=== PATIENT | female | born 2000 | race Caucasian/White ===

== ENCOUNTER 2023-09-10 07:07 | Day surgery (SDC) | payer BC, OTHER ==
[2023-09-10 07:51] VITALS: BMI 39.7
[2023-09-10] MEDS ORDERED: hydrALAZINE 20 MG/ML VIAL SLOW IVP PRN (08:33)
[2023-09-10 09:11] LABS: #Eosinphils 0.2 10x3/uL (0.0-0.5); #Monocytes 0.6 10x3/uL (0.0-1.1); #Neutrophils 7.5 10x3/uL (1.5-8.4); %Basophils 0.3 % (0.0-2.0); %Lymphocytes 20.8 % (18.0-47.0); %Monocytes 5.7 % (0.0-10.0); %Neutrophils 70.4 % (40.0-75.0); Hematocrit 27.7 % (34.9-44.5); Hemoglobin 9.1 g/dL (12.0-15.5); Mean Corpuscular HGB CONC 32.9 g/dL (32.0-36.0); Mean Corpuscular Hemoglobin 29.1 pg (27.0-33.0); Mean Corpuscular Volume 88.5 fl (81.6-98.3); Mean Platelet Volume 9.9 fl (7.4-10.4); Platelet Count 235 10x3/uL (150-450); RBC Distribution Width 12.1 % (11.5-14.5); Red Blood Cell (RBC) Count 3.13 10x6/uL (3.90-5.03); White Blood Cell (WBC) Count 10.7 10x3/uL (3.5-10.5)
[2023-09-10 09:24] LABS: ALT (SGPT) 12 U/L (8-55); AST (SGOT) 13 U/L (5-34); Albumin 3.1 g/dL (3.5-5.0); Alkaline Phosphatase 55 U/L (40-110); Anion Gap 11 mmol/L (10-20); BUN (Urea Nitrogen) 10 mg/dL (7.0-18.7); Bilirubin, Total 0.4 mg/dL (0.2-1.2); Calc. Creatinine Clearance 239 mL/min (70-130); Calcium 8.2 mg/dL (7.8-10.44); Carbon Dioxide 23 mmol/L (22-29); Chloride 107 mmol/L (98-107); Estimated GFR 126; Globulin 2.1 g/dL (2.4-3.5); Glucose 86 mg/dL (70-105); Potassium 3.9 mmol/L (3.5-5.1); Protein, Total 5.2 g/dL (6.0-8.3); Sodium 137 mmol/L (136-145)
== END 2023-09-10 09:54 | disposition home or self-care (01) ==
LOC: CSHLD/OP 07:07
PROVIDERS: ATTEND Student in an Organized Health Care Education/Training Program
DX: O99.891 Other specified diseases and conditions complicating pregnancy (principal); R51.9 Headache, unspecified; O24.419 Gestational diabetes mellitus in pregnancy, unspecified control; O99.113 Other diseases of the blood and blood-forming organs and certain disorders involving the immune mechanism complicating pregnancy, third trimester; D68.59 Other primary thrombophilia; O99.013 Anemia complicating pregnancy, third trimester; D64.9 Anemia, unspecified; Z98.84 Bariatric surgery status; Z88.5 Allergy status to narcotic agent; Z88.2 Allergy status to sulfonamides; Z3A.31 31 weeks gestation of pregnancy
CPT/HCPCS: 80053; 82570; 84156; 85025; 99283

== ENCOUNTER 2023-10-15 18:14 | Inpatient (IN) | payer BC, OTHER ==
[~2023-10-15 18:14] MED LIST: Bupivacaine 0.25% HCL 30 ML VIAL ONE; Bupivacaine PF 0.5% 30 ML VIAL ONE
[2023-10-15 18:36] VITALS: BMI 40.2
[2023-10-15] MEDS ORDERED: Promethazine HCl 25 MG/ML VIAL IM PRN (18:39)
[2023-10-15] MEDS ORDERED: Ondansetron PF 4 MG/2 ML Vial IVP PRN (18:39)
[2023-10-15] MEDS ORDERED: Zolpidem Tartrate 5 MG TAB PO PRN (18:39)
[2023-10-15] MEDS ORDERED: Misoprostol 200 MCG TAB PR PRN (18:39)
[2023-10-15] MEDS ORDERED: Diphenoxylate HCl/Atropine Tablet PO PRN (18:39)
[2023-10-15] MEDS ORDERED: Carboprost 250 MCG/ML AMP IM PRN (18:39)
[2023-10-15] MEDS ORDERED: hydrALAZINE 20 MG/ML VIAL SLOW IVP PRN (18:39)
[2023-10-15] MEDS ORDERED: Methylergonovine 0.2 MG/ML VIAL IM PRN (18:39)
[2023-10-15] MEDS ORDERED: Acetaminophen 500 MG TAB PO PRN (18:39)
[2023-10-15] MEDS ORDERED: Lidocaine 1% (PF) 30 ML VIAL SC PRN (18:39)
[2023-10-15] MEDS ORDERED: HYDROcodone/Acetaminophen 5/325 mg Tablet PO PRN (18:39)
[2023-10-15] MEDS ORDERED: Ibuprofen 800 MG TAB PO PRN (18:39)
[2023-10-15] MEDS ORDERED: Oxytocin 30 units/NS 500 ML 500 ML IV SCH ×2 (18:45)
[2023-10-15 19:14] LABS: Hematocrit 33.5 % (34.9-44.5); Hemoglobin 10.9 g/dL (12.0-15.5); Mean Corpuscular HGB CONC 32.5 g/dL (32.0-36.0); Mean Corpuscular Hemoglobin 27.9 pg (27.0-33.0); Mean Corpuscular Volume 85.9 fl (81.6-98.3); Mean Platelet Volume 9.8 fl (7.4-10.4); Platelet Count 241 10x3/uL (150-450); RBC Distribution Width 13.8 % (11.5-14.5); White Blood Cell (WBC) Count 10.9 10x3/uL (3.5-10.5)
[2023-10-15 19:45] LABS: Syphilis Antibody Nonreactive (Nonreactive); Syphilis Antibody Index 0.06 S/CO (<1.00 Non-Reactive)
[2023-10-15 19:46] LABS: HBSAg Index 0.21 S/CO (0-0.99); Hep B Surf Ag - L&D Non-Reactive S/CO (NonReactive)
[2023-10-15 19:56] LABS: ALT (SGPT) 18 U/L (8-55); AST (SGOT) 16 U/L (5-34); Albumin 3.4 g/dL (3.5-5.0); Alkaline Phosphatase 64 U/L (40-110); Anion Gap 12 mmol/L (10-20); BUN (Urea Nitrogen) 8 mg/dL (7.0-18.7); Bilirubin, Total 0.6 mg/dL (0.2-1.2); Calc. Creatinine Clearance 242 mL/min (70-130); Calcium 8.7 mg/dL (7.8-10.44); Carbon Dioxide 22 mmol/L (22-29); Chloride 107 mmol/L (98-107); Estimated GFR 126; Globulin 2.5 g/dL (2.4-3.5); Glucose 92 mg/dL (70-105); Potassium 3.9 mmol/L (3.5-5.1); Protein, Total 5.9 g/dL (6.0-8.3); Sodium 137 mmol/L (136-145)
[2023-10-15] MEDS: Lactated Ringer's 1,000 ML IV SCH (20:00)
[2023-10-15] MEDS: Misoprostol 100 MCG TAB VAG SCH (20:29)
[2023-10-15 21:32] LABS: Amphetamine Not Detected (NotDetected); Barbiturates Screen Not Detected (NotDetected); Benzodiazepine Screen Not Detected (NotDetected); Cocaine Metabolite Screen Not Detected (NotDetected); Methadone Not Detected (NotDetected); Methamphetamine Not Detected (NotDetected); Opiate Screen Not Detected (NotDetected); Oxycodone Screen Not Detected (NotDetected); Phencyclidine (PCP) Not Detected (NotDetected); THC/Cannabinoid Screen Not Detected (NotDetected); Tricyclic Screen Not Detected (NotDetected)
[2023-10-16] MEDS: Misoprostol 100 MCG TAB VAG SCH ×5 (00:09→15:22)
[2023-10-16] MEDS: fentaNYL 50 mcg/mL 1 mL Vial SLOW IVP PRN ×3 (13:31→21:58)
[2023-10-16] MEDS: Lactated Ringer's 1,000 ML IV SCH (15:17)
[2023-10-16] MEDS ORDERED: fentaNYL/Ropivacaine Epidural 100 ML ONE (23:18)
[2023-10-17] MEDS ORDERED: Acetaminophen 325 MG TAB PO PRN (00:34)
[2023-10-17] MEDS ORDERED: Naloxone HCl 0.4 mg/ml Vial IVP PRN ×2 (00:34)
[2023-10-17] MEDS ORDERED: Moisturizing Cream (Eucerin) 113 GM JAR TOP PRN (00:34)
[2023-10-17] MEDS ORDERED: Lactated Ringer's 500 ML IV PRN (00:34)
[2023-10-17] MEDS ORDERED: diphenhydrAMINE 50 MG/ML VIAL IVP PRN (00:34)
[2023-10-17] MEDS ORDERED: Ondansetron PF 4 MG/2 ML Vial IVP PRN ×2 (00:34→17:16)
[2023-10-17] MEDS ORDERED: ePHEDrine Sulfate 50 MG/10 ML VIAL SLOW IVP PRN (00:34)
[2023-10-17] MEDS ORDERED: Promethazine HCl 25 MG/ML VIAL IM PRN ×2 (00:34→17:16)
[2023-10-17] MEDS ORDERED: fentaNYL 2 mcg/Ropivacaine 0.2% Epidural 100 ML CADD EPIDURAL SCH (00:45)
[2023-10-17] MEDS ORDERED: Communication Order-Pharmacy FS SCH (00:45)
[2023-10-17] MEDS ORDERED: fentaNYL 50 mcg/mL 1 mL Vial ONE (01:00)
[2023-10-17] MEDS: Lactated Ringer's 1,000 ML IV SCH ×2 (07:27→12:56)
[2023-10-17] MEDS: Misoprostol 100 MCG TAB VAG SCH ×4 (07:28→17:15)
[2023-10-17] MEDS ORDERED: HYDROcodone/Acetaminophen 5/325 mg Tablet PO PRN ×2 (16:37→17:16)
[2023-10-17] MEDS ORDERED: Ibuprofen 800 MG TAB PO PRN (16:37)
[2023-10-17] MEDS ORDERED: Ferrous Sulfate 325 MG TAB PO SCH (17:00)
[2023-10-17] MEDS ORDERED: Milk Of Magnesia 30 ML UDCUP PO PRN (17:16)
[2023-10-17] MEDS ORDERED: Bisacodyl 10 MG SUPP PR PRN (17:16)
[2023-10-17] MEDS ORDERED: Lanolin Ointment 7 GM TUBE TOP PRN (17:16)
[2023-10-17] MEDS ORDERED: Preparation H Ointment 28 GM TUBE PR PRN (17:16)
[2023-10-17] MEDS ORDERED: Benzocaine-Menthol 82.5 ML CAN TOP PRN (17:16)
[2023-10-17] MEDS ORDERED: diphenhydrAMINE 25 MG CAP PO PRN (17:16)
[2023-10-17] MEDS ORDERED: hydrALAZINE 20 MG/ML VIAL SLOW IVP PRN (17:16)
[2023-10-17] MEDS ORDERED: Boostrix 0.5 ML (Tdap) VIAL (>/=7 yrs of age) IM ONE (17:16)
[2023-10-17] MEDS: Ibuprofen 800 MG TAB PO SCH (23:35)
[2023-10-17] MEDS: Docusate 100 MG CAP PO SCH (23:35)
[2023-10-18] MEDS: HYDROcodone/Acetaminophen 5/325 mg Tablet PO PRN ×2 (01:21→08:03)
[2023-10-18] MEDS: Ibuprofen 800 MG TAB PO SCH (05:55)
[2023-10-18] MEDS: Docusate 100 MG CAP PO SCH (08:03)
[2023-10-18] MEDS ORDERED: Prenatal Vitamin 1 TAB PO SCH (09:00)
[2023-10-18 11:55] LABS: Cardiolipin IgA Ab 1.4 APL-U/mL (<14 Negative); Cardiolipin IgG Ab 0.6 GPL-U/mL (<10 Negative); Cardiolipin IgM Ab 6.3 MPL-U/mL (<10 Negative); EliA APS New Method **** NEW METHOD ****; beta-2-Glycoprotein I IgG Ab Less than 0.8 U/mL (<7 Negative); beta-2-Glycoprotein I IgM Abs Less than 2.4 U/mL (<7 Negative)
[2023-10-18 14:14] LABS: Parvovirus B19 IgG ABS 4.1 index (0.0-0.8); Parvovirus B19 IgM ABS 0.2 index (0.0-0.8)
== END 2023-10-18 13:40 | disposition home or self-care (01) | DRG 806 ==
LOC: CSHLD 18:14
PROVIDERS: ADMIT Student in an Organized Health Care Education/Training Program; ATTEND Student in an Organized Health Care Education/Training Program
PROC: 10E0XZZ Delivery of Products of Conception, External Approach (ICD-10-PCS; principal; 2023-10-17)
PROC: 0HQ9XZZ Repair Perineum Skin, External Approach (ICD-10-PCS; 2023-10-17)
PROC: 10907ZC Drainage of Amniotic Fluid, Therapeutic from Products of Conception, Via Natural or Artificial Opening (ICD-10-PCS; 2023-10-17)
DX: O36.4XX0 Maternal care for intrauterine death, not applicable or unspecified (principal); O36.0930 Maternal care for other rhesus isoimmunization, third trimester, not applicable or unspecified; Z37.1 Single stillbirth; Z88.8 Allergy status to other drugs, medicaments and biological substances; O70.0 First degree perineal laceration during delivery; Z3A.37 37 weeks gestation of pregnancy
CPT/HCPCS: 36415; 76815; 80053; 80306; 85027; 85460; 85613; 86146; 86147; 86644; 86747; 86780; 86850; 86870; 86900; 86901; 87340; 88307; J0665; J2405; J2550; J2590; J3010; J7120

== ENCOUNTER 2024-08-29 19:25 | Day surgery (SDC) | payer BC, OTHER ==
[2024-08-29 19:43] VITALS: BMI 40.7
[2024-08-29] MEDS ORDERED: hydrALAZINE 20 MG/ML VIAL SLOW IVP PRN (20:32)
== END 2024-08-29 20:50 | disposition home or self-care (01) ==
LOC: CSHLD/OP 19:25
PROVIDERS: ATTEND Student in an Organized Health Care Education/Training Program
DX: O36.8120 Decreased fetal movements, second trimester, not applicable or unspecified (principal); O99.612 Diseases of the digestive system complicating pregnancy, second trimester; K21.9 Gastro-esophageal reflux disease without esophagitis; O99.112 Other diseases of the blood and blood-forming organs and certain disorders involving the immune mechanism complicating pregnancy, second trimester; D68.59 Other primary thrombophilia; O34.82 Maternal care for other abnormalities of pelvic organs, second trimester; N83.201 Unspecified ovarian cyst, right side; Z3A.19 19 weeks gestation of pregnancy; Z98.84 Bariatric surgery status; Z88.1 Allergy status to other antibiotic agents; Z88.5 Allergy status to narcotic agent; Z79.82 Long term (current) use of aspirin; Z79.899 Other long term (current) drug therapy
CPT/HCPCS: 99282

== ENCOUNTER 2024-11-15 11:26 | Day surgery (SDC) | payer BC, OTHER ==
[2024-11-15 11:52] VITALS: BMI 41.6
[2024-11-15 12:26] LABS: #Basophils 0.03 10x3/uL (0.0-0.2); #Eosinophils 0.29 10x3/uL (0.0-0.5); #Monocytes 0.73 10x3/uL (0.0-1.1); #Neutrophils 9.75 10x3/uL (1.5-8.4); %Basophils 0.2 % (0.0-2.0); %Eosinophils 2.2 % (0.0-6.0); %Lymphocytes 15.9 % (18.0-47.0); %Monocytes 5.6 % (0.0-10.0); Hematocrit 30.4 % (34.9-44.5); Hemoglobin 9.4 g/dL (12.0-15.5); Mean Corpuscular HGB CONC 30.9 g/dL (32.0-36.0); Mean Platelet Volume 9.7 fL (7.4-10.4); Platelet Count 300 10x3/uL (150-450); RBC Distribution Width 13.2 % (11.5-14.5); Red Blood Cell (RBC) Count 3.62 10x6/uL (3.90-5.03); White Blood Cell (WBC) Count 13.01 10x3/uL (3.5-10.5)
[2024-11-15 12:46] LABS: Creatinine, Urine 314.19 mg/dL (16.00-327.00)
[2024-11-15 12:47] LABS: ALT (SGPT) 14 U/L (Less than 34); AST (SGOT) 16 U/L (11-34); Albumin 3.1 g/dL (3.1-4.5); Alkaline Phosphatase 67 U/L (40-110); Anion Gap 10 mmol/L (10-20); BUN (Urea Nitrogen) 10 mg/dL (7.0-18.7); Bilirubin, Total 0.5 mg/dL (0.3-1.2); Calc. Creatinine Clearance 269 mL/min (70-130); Calcium 8.4 mg/dL (7.8-10.44); Carbon Dioxide 21 mmol/L (22-29); Chloride 109 mmol/L (98-107); Estimated GFR 127; Glucose 82 mg/dL (70-105); Potassium 4.2 mmol/L (3.5-5.1); Protein, Total 6.1 g/dL (6.0-8.3); Sodium 136 mmol/L (136-145)
[2024-11-15 13:05] LABS: Bilirubin Neg (Negative); Blood, Urine Negative (Negative); Clarity Clear (Clear); Glucose, Urine (Dipstick) Normal (Negative); Ketone, Urine Negative (Negative); Leukocyte 100 (Negative); Nitrite Negative (Negative); Protein, Urine (Dipstick) 30 mg/dl (Neg-Trace); Specific Gravity, Urine 1.025 (1.005-1.030)
[2024-11-15] MEDS ORDERED: hydrALAZINE 20 MG/ML VIAL SLOW IVP PRN (13:12)
[2024-11-15 13:19] LABS: Bacteria/HPF 4+ HPF (None Seen); CAUTI Indications for Culture Pregnancy; RBC/HPF None Seen HPF (0-3)
[2024-11-15 13:20] LABS: Mucous/LPF 3+ LPF (<2+); Urine Culture Reflex Yes Yes
[2024-11-15] MEDS: diphenhydrAMINE 25 MG CAP PO SCH (13:53)
[2024-11-15] MEDS: Acetaminophen 500 MG TAB PO SCH (13:54)
[2024-11-15] MEDS: Nitrofurantoin Monohyd/M-Cryst 100 MG CAP PO SCH (14:17)
[2024-11-15] MEDS: ADMIXTURE FEE IVPB SCH (14:21)
[2024-11-15] MEDS: SODIUM CHLORIDE IVPB SCH (14:21)
[2024-11-15] MEDS: IRON SUCROSE COMPLEX IVPB SCH (14:21)
== END 2024-11-15 18:06 | disposition home or self-care (01) ==
LOC: CSHLD/OP 11:26
PROVIDERS: ATTEND Student in an Organized Health Care Education/Training Program
DX: O99.891 Other specified diseases and conditions complicating pregnancy (principal); R03.0 Elevated blood-pressure reading, without diagnosis of hypertension; O47.03 False labor before 37 completed weeks of gestation, third trimester; O99.013 Anemia complicating pregnancy, third trimester; O99.113 Other diseases of the blood and blood-forming organs and certain disorders involving the immune mechanism complicating pregnancy, third trimester; D68.59 Other primary thrombophilia; Z3A.33 33 weeks gestation of pregnancy; Z98.84 Bariatric surgery status; Z88.5 Allergy status to narcotic agent; Z88.1 Allergy status to other antibiotic agents; Z79.01 Long term (current) use of anticoagulants; Z79.899 Other long term (current) drug therapy
CPT/HCPCS: 80053; 81001; 82570; 84156; 85025; 87086; 96360; 96365; 96366; 99285; J1756